=== PATIENT | male | born 1955 | race African-American/Black ===

== ENCOUNTER 2019-01-01 16:53 | Emergency (ER) | payer MEDICAID ==
[~2019-01-01] VITALS: Ht 152.4 cm; Wt 50.0 kg
[2019-01-01] MEDS ORDERED: NITROGLYCERIN OINT 1GM/INCH UDPKT TD ONE (17:30)
[2019-01-01] MEDS ORDERED: ASPIRIN 81MG TABLET PO ONE (17:30)
[2019-01-01] MEDS ORDERED: FUROSEMIDE 40MG/4ML VIAL IV ONE (17:30)
[2019-01-01 18:05] LABS: BG BASE EXCESS -11.5 mmol/L (-2.0-2.0); BG BILEVEL POS AIRWAY PRESSURE 15/5; BG CARBOXYHEMOGLOBIN 0.1 % (0.5-1.5); BG DEOXYHEMOGLOBIN 0.8 % (0.0-5.0); BG HCO3 ACT 12.6 mmol/L (22.0-26.0); BG METHEMOGLOBIN 0.5 % (0.0-1.5); BG OXYGEN SATURATION 99.2 % (92.0-98.5); BG OXYHEMOGLOBIN 98.6 % (94.0-97.0); BG PH 7.304 (7.350-7.450); BG PO2 201.1 mmHg (75.0-100.0); BG SAMPLE SITE RIGHT BRACHIAL; BG TOTAL HEMOGLOBIN 18.5 g/dL (12.0-18.0); BG VENT MODE MASK - BIPAP; BG VENT RATE 20 set
[2019-01-01 18:59] LABS: HEMATOCRIT. 58.5 % (42.0-52.0); HEMOGLOBIN. 18.4 g/dL (14.0-18.0); MEAN CORPUSCULAR HEMOGLOBIN 30.1 pg (28.0-32.0); MEAN CORPUSCULAR VOLUME 95.4 fL (80.0-94.0); RED BLOOD CELL COUNT 6.13 mill/uL (4.7-6.1); RED CELL DISTRIBUTION WIDTH 15.5 % (11.6-14.6)
[2019-01-01 19:03] LABS: CHLORIDE 100 mEq/L (98-107)
[2019-01-01 19:05] LABS: INR 1.7; PARTIAL THROMBOPLASTIN TIME 31.1 sec (23.4-31.0); PROTHROMBIN TIME 17.3 sec (9.1-11.1)
[2019-01-01 19:09] LABS: ETHANOL BLOOD < 10 mg/dL
[2019-01-01 19:15] LABS: MEAN PLATELET VOLUME 9.5 fl (7.4-10.4); PLATELET 476 x1000/uL (130-400)
[2019-01-01] MEDS ORDERED: HYDRALAZINE 20MG/ML VIAL IV ONE (19:15)
[2019-01-01 19:17] LABS: PLATELET ESTIMATE INCREASED
[2019-01-01] MEDS ORDERED: SODIUM CHLORIDE 0.9% 1000ML BAG (SEPSIS BOLUS) IV ONE (19:30)
[2019-01-01] MEDS ORDERED: LEVOFLOXACIN 750MG PREMIX 150 ML IV ONE (19:30)
[2019-01-01] MEDS ORDERED: SUCCINYLCHOLINE CHLORIDE 200MG/10ML IV ONE (19:37)
[2019-01-01] MEDS ORDERED: DEXTROSE 50% WATER 50ML SYRINGE IV ONE (19:37)
[2019-01-01] MEDS ORDERED: SODIUM BICARBONATE 8.4% MEQ/ML 50ML VIAL IV ONE (19:37)
[2019-01-01] MEDS ORDERED: ETOMIDATE 2MG/ML 10ML VIAL IV ONE (19:37)
[2019-01-01] MEDS ORDERED: EPINEPHRINE 0.1MG/ML (1:10,000) 10ML SYR ONE ×2 (19:37→20:03)
[2019-01-01] MEDS ORDERED: CALCIUM CHLORIDE 1GM/10ML SYR IV ONE (19:37)
[2019-01-01] MEDS ORDERED: ALTEPLASE 100 MG in CONTAINER,EMPTY 1 BAG IV SCH (20:00)
[2019-01-01 20:08] VITALS: BP 0/0
== END 2019-01-01 20:08 | disposition expired ==
LOC: ER 17:04 → CANBEDREQ 22:02 → ER 22:16
DX: R06.02 Shortness of breath (principal); D72.829 Elevated white blood cell count, unspecified; F17.200 Nicotine dependence, unspecified, uncomplicated; Z99.89 Dependence on other enabling machines and devices; Z98.890 Other specified postprocedural states
CPT/HCPCS: 36415; 36600; 71045; 80053; 80320; 82375; 82805; 82962; 83880; 84484; 85025; 85610; 85730; 93005; 94660; 96374; 96375; 99285; J0330; J0360; J1940; J2997; J3490; J7030; J7060; G0480